=== PATIENT | female | born 1985 | race Caucasian/White ===

== ENCOUNTER 2020-08-05 18:18 | Emergency (ER) | payer MEDICAID, OTHER ==
[~2020-08-05] VITALS: Ht 175.2 cm; Wt 103.4 kg
[2020-08-05] MEDS ORDERED: KETOROLAC 30 MG/ML VIAL IVP ONE (18:30)
[2020-08-05] MEDS ORDERED: NS IV 1000 ML 1,000 ML IV SCH (18:30)
--- NOTE | 2020-08-05 18:30 | ED Back Pain ---
General Stated Complaint: RT LOWER BACK PAIN Source of Information: Patient Exam Limitations: No Limitations History of Present Illness Date Seen by Provider: Aug 05, 2020 Time Seen by Provider: 18:20 Initial Comments The patient is a pleasant 34-year-old female who presents for evaluation of left flank pain which started earlier today. She mentions that approximately one month ago she was admitted at [facility] for a kidney infection and also kidney stones. She had never experienced either condition prior to this episode. She believes that she was in the hospital for 3 days before being discharged. She has had a cholecystectomy and multiple C-sections and denies any other abdominal surgeries. She is alert and oriented 4, calm, and appears to be no distress. She drove herself to the hospital this evening. She denies fever or chills, nausea or vomiting, diarrhea, constipation, abdominal pain, chest pain or shortness of breath, urinary complaints, dizziness or syncope. Timing/Duration: 12 Hours Severity: Moderate Pain/Injury Location: Back (left flank) Method of Injury: Unknown Associated Symptoms: denies symptoms Allergies and Home Medications Allergies Coded Allergies: sulfamethoxazole (Verified Allergy, Unknown, 08/05/20) trimethoprim (Verified Allergy, Unknown, 08/05/20) Patient Home Medication List Home Medication List Reviewed: Yes Review of Systems Constitutional: no symptoms reported EENTM: no symptoms reported Respiratory: no symptoms reported Cardiovascular: no symptoms reported Gastrointestinal: no symptoms reported, other (left flank pain) Genitourinary: no symptoms reported Musculoskeletal: back pain (left flank pain - no injury) Skin: no symptoms reported Psychiatric/Neurological: No Symptoms Reported All Other Systems Reviewed Negative Unless Noted: Yes Past Pttquih-Kgsxze-Tfjgsm Hx Past Med/Social Hx: Reviewed Nursing Past Med/Soc Hx Patient Social History Recent Foreign Travel: No Contact w/Someone Who Travel: No Physical Exam Vital Signs Vital Signs - First Documented 08/05/20 18:29 Temp 36.1 Pulse 110 Resp 16 B/P (MAP) 137/111 (120) Pulse Ox 100 O2 Delivery Room Air Capillary Refill : Height, Weight, BMI Height: '" Weight: lbs. oz. kg; BMI Method: General Appearance: No Apparent Distress, WD/WN HEENT: PERRL/EOMI, Pharynx Normal Neck: Full Range of Motion, Non Tender, Supple Cardiovascular: Regular Rate, Rhythm, No Edema, No Murmur, Normal Peripheral Pulses Respiratory: Lungs Clear, Normal Breath Sounds, No Accessory Muscle Use, No Respiratory Distress Gastrointestinal: Normal Bowel Sounds, No Pulsatile Mass, Non Tender, Soft Back: No Vertebral Tenderness, CVA Tenderness (L) Extremity: Normal Capillary Refill, Normal Range of Motion, Non Tender Neurologic/Psychiatric: Alert, Oriented x3, No Motor/Sensory Deficits, Normal Mood/Affect Skin: Normal Color, Warm/Dry Progress/Results/Core Measures Results/Orders Lab Results Laboratory Tests Test 08/05/20 18:38 08/05/20 19:20 Range/Units White Blood Count 5.1 4.3-11.0 10^3/uL Red Blood Count 3.94 L 4.35-5.85 10^6/uL Hemoglobin 13.1 11.5-16.0 G/DL Hematocrit 39 35-52 % Mean Corpuscular Volume 98 80-99 FL Mean Corpuscular Hemoglobin 33 25-34 PG Mean Corpuscular Hemoglobin Concent 34 32-36 G/DL Red Cell Distribution Width 13.0 10.0-14.5 % Platelet Count 241 130-400 10^3/uL Mean Platelet Volume 10.2 7.4-10.4 FL Immature Granulocyte % (Auto) 0 % Neutrophils (%) (Auto) 63 42-75 % Lymphocytes (%) (Auto) 29 12-44 % Monocytes (%) (Auto) 6 0-12 % Eosinophils (%) (Auto) 2 0-10 % Basophils (%) (Auto) 1 0-10 % Neutrophils # (Auto) 3.2 1.8-7.8 X 10^3 Lymphocytes # (Auto) 1.5 1.0-4.0 X 10^3 Monocytes # (Auto) 0.3 0.0-1.0 X 10^3 Eosinophils # (Auto) 0.1 0.0-0.3 10^3/uL Basophils # (Auto) 0.0 0.0-0.1 10^3/uL Immature Granulocyte # (Auto) 0.0 0.0-0.1 10^3/uL Sodium Level 139 135-145 MMOL/L Potassium Level 3.6 3.6-5.0 MMOL/L Chloride Level 103 98-107 MMOL/L Carbon Dioxide Level 25 21-32 MMOL/L Anion Gap 11 5-14 MMOL/L Blood Urea Nitrogen 12 7-18 MG/DL Creatinine 0.79 0.60-1.30 MG/DL Estimat Glomerular Filtration Rate > 60 BUN/Creatinine Ratio 15 Glucose Level 99 70-105 MG/DL Calcium Level 8.7 8.5-10.1 MG/DL Corrected Calcium 8.8 8.5-10.1 MG/DL Total Bilirubin 0.3 0.1-1.0 MG/DL Aspartate Amino Transf (AST/SGOT) 20 5-34 U/L Alanine Aminotransferase (ALT/SGPT) 17 0-55 U/L Alkaline Phosphatase 77 40-136 U/L Total Protein 7.4 6.4-8.2 GM/DL Albumin 3.9 3.2-4.5 GM/DL Lipase 14 8-78 U/L Serum Test, Qualitative NEGATIVE NEGATIVE Urine Color YELLOW Urine Clarity CLEAR Urine pH 7.0 5-9 Urine Specific Hurley 1.020 1.016-1.022 Urine Protein NEGATIVE NEGATIVE Urine Glucose (UA) NEGATIVE NEGATIVE Urine Ketones NEGATIVE NEGATIVE Urine Nitrite NEGATIVE NEGATIVE Urine Bilirubin NEGATIVE NEGATIVE Urine Urobilinogen 0.2 < = 1.0 MG/DL Urine Leukocyte Esterase NEGATIVE NEGATIVE Urine RBC (Auto) NEGATIVE NEGATIVE Urine RBC NONE /HPF Urine WBC RARE /HPF Urine Squamous Epithelial Cells NONE /HPF Urine Crystals PRESENT H /LPF Urine Amorphous Sediment LARGE EFRAIN PHOSPHATE H /LPF Urine Bacteria TRACE /HPF Urine Casts NONE /LPF Urine Mucus LARGE H /LPF Urine Culture Indicated NO Urine Opiates Screen NEGATIVE NEGATIVE Urine Oxycodone Screen NEGATIVE NEGATIVE Urine Methadone Screen NEGATIVE NEGATIVE Urine Propoxyphene Screen NEGATIVE NEGATIVE Urine Barbiturates Screen NEGATIVE NEGATIVE Ur Tricyclic Antidepressants Screen NEGATIVE NEGATIVE Urine Phencyclidine Screen NEGATIVE NEGATIVE Urine Amphetamines Screen POSITIVE H NEGATIVE Urine Methamphetamines Screen NEGATIVE NEGATIVE Urine Benzodiazepines Screen NEGATIVE NEGATIVE Urine Cocaine Screen NEGATIVE NEGATIVE Urine Cannabinoids Screen POSITIVE H NEGATIVE My Orders Orders - VERONA WILLS DO Comprehensive Metabolic Panel (08/05/20 18:25) Lipase (08/05/20 18:25) Ua Culture If Indicated (08/05/20 18:25) Ed Iv/Invasive Line Start (08/05/20 18:25) Cbc With Automated Diff (08/05/20 18:25) Ct Abdomen/Pelvis Wo (08/05/20 18:25) Urine Bedside (08/05/20 18:25) Ns Iv 1000 Ml (Sodium Chloride 0.9%) (08/05/20 18:30) Ketorolac Injection (Toradol Injection) (08/05/20 18:30) Hcg,Qualitative Serum (08/05/20 18:45) Drug Screen Stat (Urine) (08/05/20 19:20) Medications Given in ED Current Medications Medications Dose Ordered Sig/James Route Start Time Stop Time Status Last Admin Dose Admin Ketorolac Tromethamine 30 mg ONCE ONCE IVP 08/05/20 18:30 08/05/20 18:31 DC 08/05/20 18:43 30 MG Vital Signs/I&O 08/05/20 18:29 Temp 36.1 Pulse 110 Resp 16 B/P (MAP) 137/111 (120) Pulse Ox 100 O2 Delivery Room Air Progress Progress Note : Progress Note @1940 - patient updated on lab and imaging results which are acutely unremarkable. The patient states she is feeling much better and is asking to go home. Advised the patient follow up with her PCP in the next 2-3 days and return to the emergency Department immediately for new or worsening symptoms. She expresses verbal understanding and agreement with the plan and is stable for discharge. Diagnostic Imaging Diagonstic Imaging: CT Comments [facility] [place], [place] NAME: COSMEBRICE D [facility] REC#: [id number] PT STATUS: REG ER : 1985 PHYSICIAN: VERONA WILLS DO ADMIT DATE: 08/05/20/ER FS Draft Date of Exam:08/05/20 CT ABDOMEN/PELVIS WO PROCEDURE: CT abdomen and pelvis without contrast. TECHNIQUE: Multiple contiguous axial images were obtained through the abdomen and pelvis without the use of intravenous contrast. Auto Exposure Controls were utilized during the CT exam to meet ALARA standards for radiation dose reduction. INDICATION: Left flank pain. COMPARISON: None. FINDINGS: The gallbladder is surgically absent. Lung bases are clear. Solid organs are grossly unremarkable. There is a single tiny low-density cortical lesion, measuring 8 mm in the mid left kidney, probably a benign cyst. There is no inflammatory process. There is no hydronephrosis or hydroureter. No renal calculi are seen. There is mild constipation throughout the colon. The small bowel is normal. The appendix is intact. The uterus is normal. Distal ureters and urinary bladder are unremarkable. There is no lymphadenopathy. Osseous structures are normal. IMPRESSION: 1. Mild constipation. 2. No renal calculi, hydronephrosis or inflammatory change. 3. Surgically absent gallbladder. Dictated on workstation # [id number] Dict: 08/05/201918 Trans: 08/05/201922 [facility] [id number] Interpreted by: ROBYN BROWN Electronically signed by: Departure Impression Primary Impression: Left flank pain Disposition: 01 HOME, SELF-CARE Condition: Stable Departure-Patient Inst. Decision time for Depature: 19:43 Referrals: [facility] Patient Instructions: Flank Pain (DC) Add. Discharge Instructions: Follow-up with your doctor in the next 2-3 days. Take ibuprofen or Tylenol home for pain relief is needed. Drink plenty of water to stay well-hydrated. Return to the emergency department for new or worsening symptoms. VREONA WILLS DO Aug 05, 2020 18:29
[2020-08-05 18:48] LABS: BASOPHILS % (AUTO) 1 % (0-10); EOSINOPHILS # (AUTO) 0.1 10^3/uL (0.0-0.3); EOSINOPHILS % (AUTO) 2 % (0-10); HEMATOCRIT 39 % (35-52); HEMOGLOBIN 13.1 G/DL (11.5-16.0); LYMPHOCYTES # (AUTO) 1.5 X 10^3 (1.0-4.0); LYMPHOCYTES % (AUTO) 29 % (12-44); MEAN CORPUSCULAR HEMOGLOBIN 33 PG (25-34); MEAN CORPUSCULAR HGB CONC 34 G/DL (32-36); MEAN CORPUSCULAR VOLUME 98 FL (80-99); MEAN PLATELET VOLUME 10.2 FL (7.4-10.4); MONOCYTES # (AUTO) 0.3 X 10^3 (0.0-1.0); MONOCYTES % (AUTO) 6 % (0-12); NEUTROPHILS # (AUTO) 3.2 X 10^3 (1.8-7.8); NEUTROPHILS % (AUTO) 63 % (42-75); PLATELET COUNT 241 10^3/uL (130-400); WHITE BLOOD COUNT 5.1 10^3/uL (4.3-11.0)
[2020-08-05 19:11] LABS: SODIUM 139 MMOL/L (135-145)
[2020-08-05 19:12] LABS: ALANINE AMINOTRANSFERASE 17 U/L (0-55); ALBUMIN 3.9 GM/DL (3.2-4.5); ALKALINE PHOSPHATASE 77 U/L (40-136); BILIRUBIN,TOTAL 0.3 MG/DL (0.1-1.0); BUN/CREATININE RATIO 15; CALCIUM 8.7 MG/DL (8.5-10.1); CARBON DIOXIDE 25 MMOL/L (21-32); CHLORIDE 103 MMOL/L (98-107); CREATININE SERUM 0.79 MG/DL (0.60-1.30); GFR ESTIMATED > 60; GLUCOSE 99 MG/DL (70-105); LIPASE 14 U/L (8-78); POTASSIUM 3.6 MMOL/L (3.6-5.0); TOTAL PROTEIN 7.4 GM/DL (6.4-8.2)
--- NOTE | 2020-08-05 19:24 | Diagnostic Imaging Report ---
PROCEDURE: CT abdomen and pelvis without contrast. TECHNIQUE: Multiple contiguous axial images were obtained through the abdomen and pelvis without the use of intravenous contrast. Auto Exposure Controls were utilized during the CT exam to meet ALARA standards for radiation dose reduction. INDICATION: Left flank pain. COMPARISON: None. FINDINGS: The gallbladder is surgically absent. Lung bases are clear. Solid organs are grossly unremarkable. There is a single tiny low-density cortical lesion, measuring 8 mm in the mid left kidney, probably a benign cyst. There is no inflammatory process. There is no hydronephrosis or hydroureter. No renal calculi are seen. There is mild constipation throughout the colon. The small bowel is normal. The appendix is intact. The uterus is normal. Distal ureters and urinary bladder are unremarkable. There is no lymphadenopathy. Osseous structures are normal. IMPRESSION: 1. Mild constipation. 2. No renal calculi, hydronephrosis or inflammatory change. 3. Surgically absent gallbladder. Dictated by: Dictated on workstation # [id number]
[2020-08-05 19:32] LABS: AMORPHOUS SEDIMENT,UR LARGE AMOR PHOSPHATE /LPF; BACTERIA,URINE TRACE /HPF; BILIRUBIN,URINE NEGATIVE (NEGATIVE); CLARITY,URINE CLEAR; COLOR,URINE YELLOW; GLUCOSE, URINE (UA) NEGATIVE (NEGATIVE); KETONES,URINE NEGATIVE (NEGATIVE); LEUKOCYTE ESTERASE ,URINE NEGATIVE (NEGATIVE); NITRITE,URINE NEGATIVE (NEGATIVE); PROTEIN,URINE NEGATIVE (NEGATIVE); WBC,URINE RARE /HPF
[2020-08-05 19:37] LABS: AMPHETAMINE SCREEN, URINE POSITIVE (NEGATIVE); CANNABINOID SCREEN, URINE POSITIVE (NEGATIVE)
[2020-08-05 19:38] LABS: BARBITURATE SCREEN URINE NEGATIVE (NEGATIVE); BENZODIAZEPINES SCREEN URINE NEGATIVE (NEGATIVE); COCAINE SCREEN URINE NEGATIVE (NEGATIVE); METHADONE STAT NEGATIVE (NEGATIVE); METHAMPHETAMINE SCREEN URINE S NEGATIVE (NEGATIVE); OPIATE SCREEN URINE NEGATIVE (NEGATIVE); OXYCODONE STAT NEGATIVE (NEGATIVE); PROPOXYPHENE STAT NEGATIVE (NEGATIVE); TRICYCLIC ANTIDEPRESSANTS SCRE NEGATIVE (NEGATIVE)
[2020-08-05 19:53] VITALS: BP 132/90
== END 2020-08-05 19:54 | disposition home or self-care (01) ==
LOC: ER FS 18:20
DX: R10.9 Unspecified abdominal pain (principal); Z88.2 Allergy status to sulfonamides; Z88.1 Allergy status to other antibiotic agents
CPT/HCPCS: 36415; 74176; 80053; 80306; 81000; 83690; 84703; 85025

== ENCOUNTER 2020-09-05 16:49 | Emergency (ER) | payer MEDICAID ==
[~2020-09-05] VITALS: Ht 175.2 cm; Wt 102.6 kg
--- NOTE | 2020-09-05 17:13 | ED Cough/URI ---
General Chief Complaint: Respiratory Problems Stated Complaint: SOB Source: patient Exam Limitations: no limitations History of Present Illness Date Seen by Provider: Sep 05, 2020 Time Seen by Provider: 17:08 Initial Comments Patient is a 34-year-old female who presents to the emergency department today with a chief complaint of congestion, cough, wheezing for the last 4 days. Patient states she has a history of allergies and has been taking generic dure-cms-yfiavnx Padmini and Zyrtec. She states she has been using a friend's inhaler multiple times today. Patient states she is not had a fever. She has had ear fullness. Nasal congestion and runny nose. She denies any chest pain, abdominal pain. No other GI or symptoms. Patient does smoke cigarettes but is unable to smoke secondary to her cough currently. All other review of systems reviewed and negative except as stated. Timing/Duration: week Severity/Quality: dry cough Prior Episodes/Possible Cause: occasional episodes Modifying Factors: Improves With Albuterol Inhaler Associated Symptoms: nasal congestion, nasal drainage, shortness of breath Allergies and Home Medications Allergies Coded Allergies: sulfamethoxazole (Verified Allergy, Unknown, 08/05/20) trimethoprim (Verified Allergy, Unknown, 08/05/20) Home Medications Albuterol Sulfate 1 Puff Puff, 2 PUFF INH Q4H PRN for wheezing 1 PUFF = 90 MCG Prescribed by: CINDY STAHL on 09/05/201713 Prednisone 20 Mg Tab, 40 MG PO DAILY Prescribed by: CINDY STAHL on 09/05/201713 Patient Home Medication List Home Medication List Reviewed: Yes Review of Systems Review of Systems Constitutional: no symptoms reported EENTM: nose congestion Respiratory: cough, short of breath, wheezing Cardiovascular: no symptoms reported Gastrointestinal: no symptoms reported Genitourinary: no symptoms reported Skin: no symptoms reported All Other Systems Reviewed Negative Unless Noted: Yes Past Mqcmbyu-Yulypn-Hjsysz Hx Patient Social History Alcohol Use: Denies Use Recreational Drug Use: No Smoking Status: Current Everyday Smoker 2nd Hand Smoke Exposure: No Recent Foreign Travel: No Contact w/Someone Who Travel: No Recent Hopitalizations: Yes ([place] 30 days prior for Kidney infection and kidney stones. ) Physical Abuse: No Sexual Abuse: No Mistreated: No Fear: No Seasonal Allergies Seasonal Allergies: No Past Medical History Surgeries: Yes Section, Ear Surgery, Gallbladder Respiratory: Yes Asthma Cardiac: No Neurological: No Genitourinary: Yes Kidney Stones Gastrointestinal: No Musculoskeletal: No Fibromyalgia Endocrine: No Lupus HEENT: No Cancer: No Psychosocial: No Integumentary: No Blood Disorders: No Physical Exam Vital Signs - First Documented 09/05/20 16:50 Temp 35.9 Pulse 112 Resp 16 B/P (MAP) 138/93 (108) Pulse Ox 100 O2 Delivery Room Air Capillary Refill : Height: '" Weight: lbs. oz. kg; 33.00 BMI Method: General Appearance: WD/WN, no apparent distress Eyes: Bilateral Eye Normal Inspection, Bilateral Eye PERRL, Bilateral Eye EOMI HEENT: normal ENT inspection, TM abnormal (R), TM abnormal (L) (Bilateral effusions behind the TMs) Neck: full range of motion, supple, normal inspection Respiratory: chest non-tender, wheezing (Coarse expiratory wheezes noted throughout with scattered crackles) Cardiovascular: regular rate, rhythm, no murmur Extremities: normal inspection Neurologic/Psychiatric: alert, normal mood/affect, oriented x 3 Skin: normal color, warm/dry Progress/Results/Core Measures Suspected Sepsis SIRS Temperature: Pulse: Respiratory Rate: Blood Pressure / Mean: Results/Orders My Orders Orders - CINDY STAHL MD Albuterol/Ipra Inhalation Soln (Duoneb I (09/05/20 17:15) Svn Small Volume Nebulizer (09/05/20 17:05) Dexamethasone Injection (Decadron Inje (09/05/20 17:15) Medications Given in ED Current Medications Medications Dose Ordered Sig/James Route Start Time Stop Time Status Last Admin Dose Admin Albuterol/ Ipratropium 3 ml ONCE ONCE INH 09/05/20 17:15 09/05/20 17:16 DC 09/05/20 17:14 3 ML Dexamethasone Sodium Phosphate 10 mg ONCE ONCE IM 09/05/20 17:15 09/05/20 17:16 DC 09/05/20 17:14 10 MG Vital Signs/I&O 09/05/20 16:50 Temp 35.9 Pulse 112 Resp 16 B/P (MAP) 138/93 (108) Pulse Ox 100 O2 Delivery Room Air Capillary Refill : Progress Note : Time: 17:12 Progress Note 34-year-old smoker with a chief complaint of coarse cough with wheezing, shortness of breath. Evaluation today includes a physical exam, patient will be treated with an albuterol Atrovent neb as well as 10 mg of Decadron IM. She will be sent home with a prescription for an inhaler and oral prednisone. Patient is strongly encouraged to quit smoking. She verbalized understanding she is comfortable with the plan of care all questions have been sought and answered. She is stable for discharge. 1726 Patient re-evaluated after breathing treatment, some improvevment although still slightly wheezy. Patient is asking to be discharged. Again she is strongly encouraged to quit smoking. Counseling-Symptomatic: 3-10 Minutes Follow-up with PCP to: Discuss Further Options Departure Impression Primary Impression: Upper respiratory tract infection Qualified Codes: J06.9 - Acute upper respiratory infection, unspecified Disposition: HOME, SELF-CARE Condition: Stable Departure-Patient Inst. Referrals: NO,LOCAL PHYSICIAN (PCP/Family) Primary Care Physician Patient Instructions: Viral Upper Respiratory Infection, Adult (DC) Add. Discharge Instructions: Use the Albuterol Inhaler 2 puffs every 4-6 hours as needed for shortness of breath and wheezing. Take the prednisone, starting tomorrow once a day for 6 days. Use an over the counter cough medication such as Robitussin DM for your cough. Hot tea with honey will also help your cough. Please try and quit smoking. Return to the Emergency Department for any worsening cough, shortness of breath or other emergent, concerning symptoms. All discharge instructions reviewed with patient and/or family. Voiced understanding. Scripts Prednisone (Prednisone) 20 Mg Tab 40 MG PO DAILY, #6 TAB 0 Refills Prov: CINDY STAHL MD 09/05/20 Albuterol Sulfate (VENTOLIN HFA) 1 Puff Puff 2 PUFF INH Q4H PRN for wheezing, #1 PUFF 1 PUFF = 90 MCG Prov: CINDY STAHL MD 09/05/20 CINDY STAHL MD Sep 05, 2020 17:13
[2020-09-05] MEDS ORDERED: PRD20T PO (17:14)
[2020-09-05] MEDS ORDERED: RT-ALBUINH INH (17:14)
[2020-09-05] MEDS ORDERED: RT-ALBUTEROL/IPRATROPIUM 3 ML (DUONEB) VIAL INH ONE (17:15)
[2020-09-05 17:28] VITALS: BP 135/89
== END 2020-09-05 17:28 | disposition home or self-care (01) ==
LOC: EDUNIT# 16:49 → ER FS 16:50
DX: J06.9 Acute upper respiratory infection, unspecified (principal); J45.909 Unspecified asthma, uncomplicated; F17.200 Nicotine dependence, unspecified, uncomplicated; Z88.2 Allergy status to sulfonamides; Z88.1 Allergy status to other antibiotic agents; Z79.52 Long term (current) use of systemic steroids
CPT/HCPCS: 99282

== ENCOUNTER 2020-12-15 13:29 | Emergency (ER) | payer MEDICAID ==
[~2020-12-15] VITALS: Ht 175.3 cm; Wt 104.3 kg
[~2020-12-15 13:29] MED LIST: PRD20T PO; RT-ALBUINH INH
--- NOTE | 2020-12-15 13:40 | ED Dyspnea ---
General Stated Complaint: SOB History of Present Illness Date Seen by Provider: Dec 15, 2020 Time Seen by Provider: 13:40 Initial Comments 35-year-old female presents with shortness of breath. Patient reports that this been going on for a couple months. Patient was seen in July with similar complaints. Patient reports that she had worsening of her symptoms about 2 months ago when she moved into a new house with "mold" patient has been using inhalers.. Patient appears to have some underlying reactive airway disease but denies any diagnosis. Patient has some wheezing. She reports she is here today because she is "just tired of it" she has no reports of fevers, chills, chest pain, nausea vomiting or other systemic complaints patient has been using a friend's nebulizers. Allergies and Home Medications Allergies Coded Allergies: sulfamethoxazole (Verified Allergy, Unknown, 08/05/20) trimethoprim (Verified Allergy, Unknown, 08/05/20) Home Medications Albuterol Sulfate 1 Puff Puff, 2 PUFF INH Q4H PRN for wheezing 1 PUFF = 90 MCG Prescribed by: CINDY STAHL on 09/05/201713 Prednisone 20 Mg Tab, 40 MG PO DAILY Prescribed by: CINDY STAHL on 09/05/201713 Patient Home Medication List Home Medication List Reviewed: Yes Review of Systems Review of Systems Constitutional: No chills, No fever EENTM: no symptoms reported Respiratory: see HPI, short of breath, wheezing Cardiovascular: no symptoms reported Gastrointestinal: no symptoms reported Genitourinary: no symptoms reported Musculoskeletal: no symptoms reported Skin: no symptoms reported Endocrine: No Symptoms Reported Hematologic/Lymphatic: No Symptoms Reported Past Mqtacsy-Yctfya-Vgotbs Hx Past Med/Social Hx: Reviewed Nursing Past Med/Soc Hx Patient Social History 2nd Hand Smoke Exposure: No Recent Hopitalizations: Yes ([place] 30 days prior for Kidney infection and kidney stones. ) Seasonal Allergies Seasonal Allergies: No Past Medical History Surgeries: Yes Section, Ear Surgery, Gallbladder Respiratory: Yes Asthma Cardiac: No Neurological: No Genitourinary: Yes Kidney Stones Gastrointestinal: No Musculoskeletal: No Fibromyalgia Endocrine: No Lupus HEENT: No Cancer: No Psychosocial: No Integumentary: No Blood Disorders: No Physical Exam Vital Signs Capillary Refill : Height, Weight, BMI Height: '" Weight: lbs. oz. kg; 33.00 BMI Method: General Appearance: Mild Distress, Obese Neck: Full Range of Motion, Normal Inspection Respiratory: No Accessory Muscle Use, No Respiratory Distress; No Accessory Muscle Use; Wheezing (Moderate diffuse) Cardiovascular: Regular Rate, Rhythm, No Edema Gastrointestinal: Non Tender, Soft Extremity: Normal Capillary Refill, Normal Inspection Neurologic/Psychiatric: Alert, Oriented x3, No Motor/Sensory Deficits, Normal Mood/Affect, tax evaluator II-XII Norm as Tested Skin: Normal Color, Warm/Dry Progress/Results/Core Measures Results/Orders Lab Results Laboratory Tests Test 12/15/20 13:56 Range/Units White Blood Count 6.8 4.3-11.0 10^3/uL Red Blood Count 3.96 L 4.35-5.85 10^6/uL Hemoglobin 12.8 11.5-16.0 G/DL Hematocrit 39 35-52 % Mean Corpuscular Volume 99 80-99 FL Mean Corpuscular Hemoglobin 32 25-34 PG Mean Corpuscular Hemoglobin Concent 33 32-36 G/DL Red Cell Distribution Width 13.5 10.0-14.5 % Platelet Count 250 130-400 10^3/uL Mean Platelet Volume 10.3 7.4-10.4 FL Immature Granulocyte % (Auto) 0 % Neutrophils (%) (Auto) 62 42-75 % Lymphocytes (%) (Auto) 23 12-44 % Monocytes (%) (Auto) 5 0-12 % Eosinophils (%) (Auto) 10 0-10 % Basophils (%) (Auto) 1 0-10 % Neutrophils # (Auto) 4.2 1.8-7.8 X 10^3 Lymphocytes # (Auto) 1.6 1.0-4.0 X 10^3 Monocytes # (Auto) 0.3 0.0-1.0 X 10^3 Eosinophils # (Auto) 0.7 H 0.0-0.3 10^3/uL Basophils # (Auto) 0.0 0.0-0.1 10^3/uL Immature Granulocyte # (Auto) 0.0 0.0-0.1 10^3/uL Sodium Level 136 135-145 MMOL/L Potassium Level 4.0 3.6-5.0 MMOL/L Chloride Level 103 98-107 MMOL/L Carbon Dioxide Level 27 21-32 MMOL/L Anion Gap 6 5-14 MMOL/L Blood Urea Nitrogen 18 7-18 MG/DL Creatinine 0.76 0.60-1.30 MG/DL Estimat Glomerular Filtration Rate > 60 BUN/Creatinine Ratio 24 Glucose Level 120 H 70-105 MG/DL Calcium Level 8.7 8.5-10.1 MG/DL C-Reactive Protein 0.19 <0.50 MG/DL Pro-B-Type Natriuretic Peptide 180.5 H <75.0 PG/ML My Orders Orders - HURTADO,CHEL L DO Chest Pa/Lat (2 View) (12/15/20 13:40) Basic Metabolic Panel (12/15/20 13:40) Cbc With Automated Diff (12/15/20 13:40) Probnp Fs (12/15/20 13:40) Crp Fs (12/15/20 13:40) Albuterol/Ipra Inhalation Soln (Duoneb I (12/15/20 13:45) Dexamethasone Injection (Decadron Inje (12/15/20 13:45) Svn Small Volume Nebulizer (12/15/20 13:40) Magnesium 1 Gm/100 Ml Ivpb (Magnesium Parekh (12/15/20 13:45) Medications Given in ED Current Medications Medications Dose Ordered Sig/James Route Start Time Stop Time Status Last Admin Dose Admin Albuterol/ Ipratropium 3 ml ONCE ONCE INH 12/15/20 13:45 12/15/20 13:46 DC 12/15/20 13:59 3 ML Dexamethasone Sodium Phosphate 10 mg ONCE ONCE IV 12/15/20 13:45 12/15/20 13:46 DC 12/15/20 13:58 10 MG Progress Progress Note : Time: 15:12 Progress Note Patient feeling significant better following treatment. Patient is consistent with what appears to be her underlying reactive airway disease. I will prescribe her prednisone x3 days, albuterol nebulizer and MDI. Recommend she establish care with a primary care provider for outpatient management. She should use Zyrtec/Padmini or other similar antihistamine along with steroid nasal spray. Patient stable and discharged home Diagnostic Imaging Diagonstic Imaging: Xray Plain Films/CT/US/NM/MRI: chest Comments [facility] [place], [place] NAME: BRICE AGUIAR [facility] REC#: [id number] PT STATUS: REG ER : 1985 PHYSICIAN: CHEL HURTADO DO ADMIT DATE: 12/15/20/ER FS Draft Date of Exam:12/15/20 CHEST PA/LAT (2 VIEW) INDICATION: sob, wheezing COMPARISON: CT dated 08/05/2020. FINDINGS: Frontal and lateral views of the chest demonstrate normal heart size and pulmonary vascularity. The lungs are clear. There are no signs of infiltrate, pleural effusions or pneumothoraces. The visualized osseous structures show no acute abnormalities. Calcified granuloma is noted within the right lung base and is best visualized on the lateral view. IMPRESSION: 1. No acute process. No signs of infiltrates, effusions or pneumothoraces. Dictated on workstation # [id number] Dict: 12/15/20 1406 Trans: 12/15/20 1409 [id number] [id number] Interpreted by: KATHERYN PORTER MD Electronically signed by: Departure Impression Primary Impression: Reactive airway disease with wheezing Qualified Codes: J45.909 - Unspecified asthma, uncomplicated Disposition: 01 HOME, SELF-CARE Condition: Improved Departure-Patient Inst. Referrals: NO,LOCAL PHYSICIAN (PCP/Family) Primary Care Physician Patient Instructions: Wheezing, How to Use Your Metered Dose Inhaler (Adults) Add. Discharge Instructions: Please establish care with a primary care provider for further outpatient management Scripts Albuterol Sulfate (Ventolin Hfa) 18 Gm Hfa.aer.ad 18 GM INH Q4H PRN for WHEEZING, #1 EA 0 Refills Prov: CHEL HURTADO DO 12/15/20 Prednisone (Prednisone) 20 Mg Tab 40 MG PO DAILY, #6 TAB 0 Refills Prov: CHEL HURTADO DO 12/15/20 Albuterol Sulfate (Albuterol Sulfate) 2.5 Mg/3 Ml Vial.neb 2.5 MG INH Q4H PRN for WHEEZING, #50 EA 1 Refill Prov: CHEL HURTADO DO 12/15/20 CHEL HURTADO DO Dec 15, 2020 13:40
[2020-12-15] MEDS ORDERED: RT-ALBUTEROL/IPRATROPIUM 3 ML (DUONEB) VIAL INH ONE (13:45)
[2020-12-15] MEDS: MAGNESIUM 1 GM/100 ML IVPB 100 ML IV SCH ×2 (13:58→15:05)
[2020-12-15 14:09] LABS: HEMATOCRIT 39 % (35-52); HEMOGLOBIN 12.8 G/DL (11.5-16.0); MEAN CORPUSCULAR HEMOGLOBIN 32 PG (25-34); MEAN CORPUSCULAR VOLUME 99 FL (80-99); WHITE BLOOD COUNT 6.8 10^3/uL (4.3-11.0)
[2020-12-15 14:10] LABS: BASOPHILS % (AUTO) 1 % (0-10); EOSINOPHILS # (AUTO) 0.7 10^3/uL (0.0-0.3); EOSINOPHILS % (AUTO) 10 % (0-10); LYMPHOCYTES # (AUTO) 1.6 X 10^3 (1.0-4.0); LYMPHOCYTES % (AUTO) 23 % (12-44); MEAN CORPUSCULAR HGB CONC 33 G/DL (32-36); MEAN PLATELET VOLUME 10.3 FL (7.4-10.4); MONOCYTES # (AUTO) 0.3 X 10^3 (0.0-1.0); MONOCYTES % (AUTO) 5 % (0-12); NEUTROPHILS # (AUTO) 4.2 X 10^3 (1.8-7.8); NEUTROPHILS % (AUTO) 62 % (42-75); PLATELET COUNT 250 10^3/uL (130-400)
--- NOTE | 2020-12-15 14:10 | Diagnostic Imaging Report ---
INDICATION: sob, wheezing COMPARISON: CT dated 08/05/2020. FINDINGS: Frontal and lateral views of the chest demonstrate normal heart size and pulmonary vascularity. The lungs are clear. There are no signs of infiltrate, pleural effusions or pneumothoraces. The visualized osseous structures show no acute abnormalities. Calcified granuloma is noted within the right lung base and is best visualized on the lateral view. IMPRESSION: 1. No acute process. No signs of infiltrates, effusions or pneumothoraces. Dictated by: Dictated on workstation # [id number]
[2020-12-15 14:39] LABS: BUN/CREATININE RATIO 24; CALCIUM 8.7 MG/DL (8.5-10.1); CARBON DIOXIDE 27 MMOL/L (21-32); CHLORIDE 103 MMOL/L (98-107); CREATININE SERUM 0.76 MG/DL (0.60-1.30); GFR ESTIMATED > 60; GLUCOSE 120 MG/DL (70-105); SODIUM 136 MMOL/L (135-145)
[2020-12-15] MEDS ORDERED: ALBU2.5V4 INH (15:16)
[2020-12-15] MEDS ORDERED: PRD20T PO (15:16)
[2020-12-15] MEDS ORDERED: ALBU18HF2 INH (15:16)
[2020-12-15 15:25] VITALS: BP 145/92
== END 2020-12-15 15:24 | disposition home or self-care (01) ==
LOC: EDUNIT# 13:29 → ER FS 13:31
DX: J45.909 Unspecified asthma, uncomplicated (principal); E66.9 Obesity, unspecified; Z68.33 Body mass index [BMI] 33.0-33.9, adult; Z88.2 Allergy status to sulfonamides; Z88.1 Allergy status to other antibiotic agents; Z79.52 Long term (current) use of systemic steroids
CPT/HCPCS: 36415; 71046; 80048; 83880; 85025; 86141; 94640

== ENCOUNTER 2021-06-25 10:19 | Emergency (ER) | payer MEDICAID ==
[~2021-06-25] VITALS: Ht 177.8 cm; Wt 107.9 kg
[~2021-06-25 10:19] MED LIST changes: +ALBU18HF2 INH; +ALBU2.5V4 INH
--- OUTSIDE RECORDS SUMMARY | 2021-06-25 10:26 | XMS REPORT | Clinical Summary ---
Author Author [facility] Organization [facility] Address Unknown Phone Unavailable Care Team Providers Care Urgent Care Name Role Phone PCP Unavailable Source Comments [facility] ([facility]) documents do [facility] appear [facility] the [facility] Allergies Not on File Medications Please verify current medications with patient. Not on file Active Problems Not on file Social History Date Tobacco Use Types Packs/Day Years Used Never Assessed Sex Assigned at Date Recorded Not on file Last Filed Vital Signs Not on file Plan of Treatment Health Maintenance Due Date Last Done Comments HPV/Cotest 1984 COVID-19 Vaccine (1) 1996 Cervical Cancer Screening 2005 Pap Smear 2005 Influenza Vaccine (#1) 2021 HPV Vaccine Aged Out No longer eligible based on patient's age to complete this topic Pneumococcal Vaccine: Aged Out No longer eligib le based on patient's age to Pediatrics (0 to 5 Years) complete this topic and At-Risk Patients (6 to 64 Years) Results Not on filefrom Last 3 Months
[2021-06-25 10:39] VITALS: BP 156/103
--- NOTE | 2021-06-25 10:54 | ED EENT ---
History of Present Illness General Chief Complaint: Oral/Throat Problems Stated Complaint: CHEMICAL EXPOSURE Nursing Triage Note: Patient states she has reactive airway disease due to using bleach to clean a house that has had cats in it. She states that she created mustard gas by using the bleach to clean cat urine. She states her throat is sore and swollen and feels as though she has strep throat. She states she has been sober for 3 weeks from her meth use and just got out of shelter 5 days ago. History of Present Illness Date Seen by Provider: Jun 25, 2021 Time Seen by Provider: 10:40 Initial Comments 35-year-old female presents with concerns of sore throat and possible "chemical exposure". Patient says she was cleaning up a neighbor's house that had many cats and cat urine and she was using bleach and she may have inadvertently created mustard gas.... So she was told. She is concerned that this is in her system now and wants to be drug tested as she has not used meth in over 3 weeks. Also want screening for strep. Denies recent illness, fever or chills. Denies chest pain or shortness of air. Denies abdominal pain nausea vomiting Allergies and Home Medications Allergies Coded Allergies: sulfamethoxazole (Verified Allergy, Unknown, 08/05/20) trimethoprim (Verified Allergy, Unknown, 08/05/20) Patient Home Medication List Home Medication List Reviewed: Yes Albuterol Sulfate (Ventolin Hfa) 1 Puff Puff, 2 PUFF INH Q4H PRN for wheezing Prescribed by: CINDY STAHL on 09/05/20 1714 Albuterol Sulfate (Albuterol Sulfate) 2.5 Mg/3 Ml Vial.neb, 2.5 MG INH Q4H PRN for WHEEZING Prescribed by: CHEL HURTADO on 12/15/20 1516 Albuterol Sulfate (Ventolin Hfa) 18 Gm Hfa.aer.ad, 18 GM INH Q4H PRN for WHEEZING Prescribed by: CHEL HURTADO on 12/15/20 1516 Cetirizine HCl (Zyrtec) 10 Mg Tablet, 10 MG PO DAILY PRN for SORE THROAT Prescribed by: KHANG BELL on 06/25/21 1055 Ibuprofen (Ibuprofen) 800 Mg Tablet, 800 MG PO Q8H PRN for PAIN Prescribed by: KHANG BELL on 06/25/21 1055 Prednisone (Prednisone) 20 Mg Tab, 40 MG PO DAILY Prescribed by: CINDY STAHL on 09/05/20 1714 Prednisone (Prednisone) 20 Mg Tab, 40 MG PO DAILY Prescribed by: CHEL HURTADO on 12/15/20 1516 Review of Systems Review of Systems Constitutional: No chills, No fever, No malaise, No weakness Eyes: No Symptoms Reported Ears: No Symptoms Reported Nose: no symptoms reported Mouth: no symptoms reported Throat: see HPI, pain, swelling; denies neck stiffness, denies hoarse, denies aphonia, denies muffled, denies painful swallowing, denies difficulty with fluids Respiratory: No cough, No short of breath Cardiovascular: No edema, No palpitations Gastrointestinal: No abdominal pain, No nausea, No vomiting Skin: No change in color, No rash Past Zdtuumb-[id number]-[id number] Hx Patient Social History Tobacco Use?: Yes Substance use?: Yes Substance type: Methamphetamine Seasonal Allergies Seasonal Allergies: No Past Medical History Surgeries: Yes Section, Ear Surgery, Gallbladder Respiratory: Yes Asthma Cardiac: No Neurological: No Genitourinary: Yes Kidney Stones Gastrointestinal: No Musculoskeletal: No Fibromyalgia Endocrine: No Lupus HEENT: No Cancer: No Psychosocial: No Integumentary: No Blood Disorders: No Physical Exam Vital Signs Vital Signs - First Documented 06/25/21 10:39 Temp 36.5 Pulse 99 Resp 18 B/P (MAP) 156/103 (120) Pulse Ox 98 O2 Delivery Room Air Height, Weight, BMI Height: '" Weight: lbs. oz. kg; 34.00 BMI Method: General Appearance: WD/WN, no apparent distress Eyes: bilateral eye PERRL, bilateral eye EOMI Ears: bilateral ear auricle normal, bilateral ear canal normal, bilateral ear TM normal Nose: normal inspection; No active bleeding, No discharge Mouth/Throat: No excessive drooling, No mandibular swelling, No maxillary swelling, No pharynx swelling, No tongue swollen, No tonsillar exudate, No tonsillar swelling, No uvula swelling, No voice changes; other (mild post pharyngeal erythema) Progress/Results/Core Measures Results/Orders Lab Results Laboratory Tests Test 06/25/21 10:45 06/25/21 10:57 Range/Units Group A Streptococcus Screen NEGATIVE NEGATIVE Urine Opiates Screen NEGATIVE NEGATIVE Urine Oxycodone Screen POSITIVE H NEGATIVE Urine Methadone Screen NEGATIVE NEGATIVE Urine Propoxyphene Screen NEGATIVE NEGATIVE Urine Barbiturates Screen NEGATIVE NEGATIVE Ur Tricyclic Antidepressants Screen NEGATIVE NEGATIVE Urine Phencyclidine Screen NEGATIVE NEGATIVE Urine Amphetamines Screen NEGATIVE NEGATIVE Urine Methamphetamines Screen POSITIVE H NEGATIVE Urine Benzodiazepines Screen NEGATIVE NEGATIVE Urine Cocaine Screen NEGATIVE NEGATIVE Urine Cannabinoids Screen POSITIVE H NEGATIVE My Orders Orders - KHANG BELL DO Rapid Strep A Screen (06/25/21 10:37) Drug Screen Stat (Urine) (06/25/21 10:47) Vital Signs/I&O 06/25/21 10:39 Temp 36.5 Pulse 99 Resp 18 B/P (MAP) 156/103 (120) Pulse Ox 98 O2 Delivery Room Air Blood Pressure Mean: 120 Departure Impression Primary Impression: Pharyngitis Qualified Codes: J02.9 - Acute pharyngitis, unspecified Additional Impression: Methamphetamine abuse Disposition: HOME, SELF-CARE Condition: Stable Departure-Patient Inst. Decision time for Depature: 10:55 Referrals: NO,LOCAL PHYSICIAN (PCP/Family) Primary Care Physician Patient Instructions: Sore Throat in Adults Add. Discharge Instructions: f/u w PCP in 5 to 7 days if not improving, sooner if worse All discharge instructions reviewed with patient and/or family. Voiced understanding. Scripts Cetirizine HCl (Zyrtec) 10 Mg Tablet 10 MG PO DAILY PRN for SORE THROAT, #30 TAB Prov: ZEESTINEKHANG L DO 06/25/21 Ibuprofen (Ibuprofen) 800 Mg Tablet 800 MG PO Q8H PRN for PAIN, #30 TAB 0 Refills Prov: ROVENSTINEKHANG L DO 06/25/21 ROVENSTINETEREKHANG L DO Jun 25, 2021 10:54
[2021-06-25] MEDS ORDERED: IBUP-1780 PO (10:55)
[2021-06-25] MEDS ORDERED: CETI10TA49 PO (10:55)
[2021-06-25 11:09] LABS: AMPHETAMINE SCREEN, URINE NEGATIVE (NEGATIVE); BARBITURATE SCREEN URINE NEGATIVE (NEGATIVE); BENZODIAZEPINES SCREEN URINE NEGATIVE (NEGATIVE); CANNABINOID SCREEN, URINE POSITIVE (NEGATIVE); COCAINE SCREEN URINE NEGATIVE (NEGATIVE); METHADONE STAT NEGATIVE (NEGATIVE); METHAMPHETAMINE SCREEN URINE S POSITIVE (NEGATIVE); OPIATE SCREEN URINE NEGATIVE (NEGATIVE); OXYCODONE STAT POSITIVE (NEGATIVE); PROPOXYPHENE STAT NEGATIVE (NEGATIVE); TRICYCLIC ANTIDEPRESSANTS SCRE NEGATIVE (NEGATIVE)
== END 2021-06-25 10:58 | disposition home or self-care (01) ==
LOC: EDUNIT# 10:19 → ER FS 10:23
DX: J02.9 Acute pharyngitis, unspecified (principal); F15.10 Other stimulant abuse, uncomplicated; J45.909 Unspecified asthma, uncomplicated; Z79.52 Long term (current) use of systemic steroids
CPT/HCPCS: 80306; 87430; 99284